=== PATIENT | female | born 1980 | race Caucasian/White ===

== ENCOUNTER 2018-11-13 18:46 | Emergency (ER) | payer SELFPAY ==
--- NOTE | 2018-11-13 20:30 | ER Document Report ---
HPI - HPI Time Seen by Provider: 11/13/18 20:14 Pain Level: 2 Notes: Patient is a 38-year-old female who presents with chief complaint of swelling near her left eyebrow. She states that her symptoms started approximately 2 days ago. She states that she felt like it was a large pimple and she tried squeezing it which has made the pain worse. She denies any visual impairment. She denies use of any contact lenses or any pain in the eyeball itself. - REPRODUCTIVE Reproductive: DENIES: : Past Medical History - General Information source: Patient - Social History Smoking Status: Never Smoker Frequency of alcohol use: None Drug Abuse: None Family History: Reviewed & Not Pertinent - Past Medical History Cardiac Medical History: Reports: Hx Hypertension - B[place]line Denies: Hx Coronary Artery Disease, Hx Heart Attack Pulmonary Medical History: Reports: Hx Bronchitis - Acute Denies: Hx Asthma, Hx COPD, Hx Pneumonia Neurological Medical History: Denies: Hx Cerebrovascular Accident, Hx Seizures Musculoskeletal Medical History: Denies Hx Arthritis Past Surgical History: Denies: Hx Pacemaker - Immunizations Hx Diphtheria, Pertussis, Tetanus Vaccination: No Vertical Provider Document - CONSTITUTIONAL Notes: PHYSICAL EXAMINATION: GENERAL: Well-appearing, well-nourished and in no acute distress. HEAD: Atraumatic, normocephalic. EYES: Pupils equal round extraocular movements intact, conjunctiva are normal. Mild erythema with swelling noted to left eyebrow at the lateral aspect. Mild induration but no fluctuance noted. ENT: Nares patent NECK: Normal range of motion LUNGS: No respiratory distress Musculoskeletal: Normal range of motion NEUROLOGICAL: Normal speech, normal gait. PSYCH: Normal mood, normal affect. SKIN: Warm, Dry, normal turgor, no rashes or lesions noted. - INFECTION CONTROL TRAVEL OUTSIDE OF THE [place] IN LAST 30 DAYS: No Course - Re-evaluation Re-evalutation: Area of erythema noted but without fluctuance. Mild induration. Patient will be placed on antibiotics and encouraged to apply warm compresses to the area. We did discussed ED return precautions which patient verbalized understanding of. - Vital Signs Vital signs: Temp Pulse Resp BP Pulse Ox 99.0 F 102 H 20 153/94 H 97 11/13/18 18:54 11/13/18 18:54 11/13/18 18:54 11/13/18 18:54 11/13/18 18:54 Discharge - Discharge Clinical Impression: Cellulitis of eyelid Qualifiers: Laterality: left Qualified Code(s): H00.036 - Abscess of eyelid left eye, unspecified eyelid Condition: Stable Disposition: HOME, SELF-CARE Additional Instructions: Cellulitis You have an infection of your skin and underlying soft tissues called cellulitis. This is due to bacteria, which can enter through any break in the skin, or even through an irritated hair follicle. Untreated, cellulitis will usually worsen. Antibiotics are required. Usually, warm packs or warm soaks, and elevation of the infected area are recommended. You should start getting better within 24 to 36 hours. Most infections respond quickly to the right medication. Follow-up care is important, however, to check for abscess (boil) formation, unsuspected foreign body, or resistant infection. If you develop fever, chills, or if the area of infection is becoming rapidly more swollen or painful, call the doctor at once. Doxycycline Doxycycline (Vibramycin, Doryx) is an antibiotic of the tetracycline family. This type of drug is useful for infections of the respiratory tract and genital tract, and is sometimes used for intestinal infections. Unlike most tetracyclines, doxycycline can be taken with food. It is longer acting, and (usually) less prone to side effects than regular tetracycline. Tetracycline antibiotics can stain immature teeth and SHOULD NOT BE TAKEN BY CHILDREN, NURSING MOTHERS, OR WOMEN. Tetracyclines can make you more prone to sunburn. Abdominal cramping, nausea, and diarrhea are occasional side effects. Women may experience vaginal yeast infections. Call the doctor at once if you develop hives, itching, shortness of breath, or lightheadedness. Please take antibiotics as prescribed. Apply warm moist compresses to the area at least 3-4 times daily. Watch for signs of infection as outlined above such as development of fever, chills, increasing pain, swelling or redness at the area. If these signs occur please return to the emergency department. Prescriptions: Doxycycline Hyclate 100 mg PO BID #14 capsule Fluconazole [Diflucan] 150 mg PO ONCE PRN #1 tablet PRN Reason: Forms: Return to Work Referrals: RAFIQ SAWANT MD [ACTIVE STAFF] - Follow up as needed
[2018-11-13] MEDS ORDERED: DOXYCYCLINE HYCLATE 100 MG TABLET PO ONE (20:32)
[2018-11-13 20:40] VITALS: BP 135/90
== END 2018-11-13 20:40 | disposition home or self-care (01) ==
LOC: ER 18:46
DX: H00.036 Abscess of eyelid left eye, unspecified eyelid (principal)
CPT/HCPCS: 99283